=== PATIENT | male | born 1970 | race African-American/Black ===

== ENCOUNTER 2016-04-21 20:54 | Inpatient (IN) | payer MEDICAID ==
[~2016-04-21] VITALS: Ht 190.5 cm; Wt 121.5 kg
[2016-04-21] MEDS ORDERED: InsuLIN R (HUMAN) 100 UNITS in SODIUM CHL 0.9% 99 ML IV SCH (21:18)
[2016-04-21] MEDS ORDERED: POTASSIUM CHL 20MEQ/100ML 100 ML IV ONE (21:30)
[2016-04-21] MEDS ORDERED: DEXTROSE (50%) 50ML SYRG IV PRN (21:30)
[2016-04-21] MEDS ORDERED: SODIUM CHLORIDE 0.9% 2,000 ML IV ONE (21:30)
[2016-04-21 21:41] LABS: Basophils # (auto) 0.1 uL; Basophils % (auto) 0.7 % (0.0-2.0); DEFINITIVE VIEW TRANSMISSION; Eosinophils # (auto) 0 uL; Eosinophils % (auto) 0.3 % (0.0-7.0); Hematocrit 52.8 % (41.0-53.0); Lymphocytes # (auto) 1.1 uL; Lymphocytes % (auto) 11.6 % (10.0-50.0); Mean Corpuscular Hemoglobin 27.6 pg (28.0-32.0); Mean Corpuscular Hgb Conc. 30.4 g/dL (32.0-36.0); Mean Corpuscular Volume 90.9 fL (80.0-100.0); Mean Platelet Volume 10.8 fL (7.4-10.4); Monocytes # (auto) 0.6 uL; Monocytes % (auto) 6.4 % (0.0-12.0); Neutrophils # (auto) 7.8 uL; Platelet Count (auto) 394 10^3/uL (140-450); SUSPECT VIEW TRANSMISSION; White Blood Cell 9.7 10^3/uL (4.4-10.8)
[2016-04-21] MEDS: ACCU-CHEK COMFORT CURVE STRIP VI SCH ×2 (22:14→22:55)
[2016-04-21 22:28] LABS: INR 1.04 (0.9-1.15); Partial Thromboplastin Time 29.9 sec (22.64-33.71); Prothrombin Time 10.7 sec (9.37-12.3)
[2016-04-21 22:35] LABS: Urine RBC None Seen /hpf (0 - 3)
[2016-04-21 23:50] LABS: Albumin 3.6 g/dL (3.4-5.0); Calcium 9.2 mg/dL (8.5-10.1); Potassium 4.7 mmol/L (3.5-5.1)
[2016-04-21 23:53] LABS: BUN/Creatinine Ratio 17.1; Bilirubin, Total 0.7 mg/dL (0.2-1.0); Total Protein 9.7 g/dL (6.4-8.2)
[2016-04-22] MEDS: ACCU-CHEK COMFORT CURVE STRIP VI SCH ×12 (00:04→21:47)
[2016-04-22 00:31] LABS: Urine Bilirubin Negative (Negative); Urine Blood Negative /uL (Negative); Urine Color Colorless (Yellow); Urine Ketone TRACE (Negative); Urine Nitrite Negative (Negative); Urine Urobilinogen Normal (Negative); Urine pH 5.5 (5.0-8.0)
[2016-04-22 00:58] LABS: Urine Glucose 4+ mg/dL (Normal)
[2016-04-22] MEDS ORDERED: SODIUM CHLORIDE 0.9% 1,000 ML IV SCH (05:52)
[2016-04-22] MEDS ORDERED: DEXTROSE (50%) 50ML SYRG IV PRN (06:00)
[2016-04-22] MEDS: InsuLIN REG 1unit/0.01ml Soln (100units/ml) SC SCH ×5 (06:00→21:47)
[2016-04-22] MEDS ORDERED: ONDANSETRON HCL 4 MG/2 ML VIAL IV PRN (06:15)
[2016-04-22] MEDS ORDERED: HYDROmorphone HCL 2 MG/ML VL IV PRN (06:15)
[2016-04-22] MEDS ORDERED: cefTRIAXone 1GM/50ML D5W 50 ML IV ONE (06:15)
[2016-04-22] MEDS ORDERED: InsuLIN REG 1unit/0.01ml Soln (100units/ml) IV ONE (06:15)
[2016-04-22] MEDS: SOD CHL 0.9%/ KCL 20MEQ 1,000 ML IV SCH ×2 (06:27→13:12)
[2016-04-22] MEDS: FAMOTIDINE 20 MG TAB PO SCH ×2 (10:15→21:39)
[2016-04-22] MEDS ORDERED: INSULIN DETEMIR(LEVEMIR) 1unit/0.01ml Soln (100units/ml) SC SCH (12:45)
[2016-04-22 13:00] VITALS: BP 129/87
[2016-04-22 13:45] LABS: Calcium 8.2 mg/dL (8.5-10.1)
[2016-04-22 13:47] LABS: BUN/Creatinine Ratio 15.4
[2016-04-22] MEDS: glyBURIDE 2.5 MG TAB PO SCH (13:48)
[2016-04-22 17:00] VITALS: BP 138/90
[2016-04-22 20:30] VITALS: BP 132/94
[2016-04-22 22:00] VITALS: BP 132/94
[2016-04-23] MEDS: InsuLIN REG 1unit/0.01ml Soln (100units/ml) SC SCH ×2 (01:59→06:20)
[2016-04-23] MEDS: ACCU-CHEK COMFORT CURVE STRIP VI SCH ×2 (01:59→06:17)
[2016-04-23 05:00] VITALS: BP 149/90
[2016-04-23] MEDS: glyBURIDE 2.5 MG TAB PO SCH (06:17)
[2016-04-23] MEDS ORDERED: GLIP-116 PO (06:29)
[2016-04-23 09:12] VITALS: BP 149/90
[2016-04-23 09:48] LABS: Basophils # (auto) 0.1 uL; Eosinophils # (auto) 0.1 uL; Eosinophils % (auto) 1.6 % (0.0-7.0); Hematocrit 46.3 % (41.0-53.0); Hemoglobin 14.6 g/dL (13.5-17.5); Lymphocytes # (auto) 1.8 uL; Lymphocytes % (auto) 19.7 % (10.0-50.0); Mean Corpuscular Hemoglobin 28.4 pg (28.0-32.0); Mean Corpuscular Hgb Conc. 31.5 g/dL (32.0-36.0); Mean Corpuscular Volume 90.2 fL (80.0-100.0); Mean Platelet Volume 9.6 fL (7.4-10.4); Monocytes # (auto) 0.4 uL; Monocytes % (auto) 4.1 % (0.0-12.0); Neutrophils # (auto) 6.7 uL; Neutrophils % (auto) 73.6 % (37.0-80.0); Platelet Count (auto) 308 10^3/uL (140-450); Red Cell Distribution Width 13.7 % (11.6-16.0); White Blood Cell 9.1 10^3/uL (4.4-10.8)
[2016-04-23] MEDS ORDERED: cefTRIAXone 1GM/50ML D5W 50 ML IV SCH (10:00)
[2016-04-23 10:21] LABS: Albumin 3.1 g/dL (3.4-5.0); BUN/Creatinine Ratio 10.8; Calcium 8.5 mg/dL (8.5-10.1); Potassium 3.5 mmol/L (3.5-5.1)
== END 2016-04-23 10:15 | disposition home or self-care (01) | DRG 420 ==
LOC: ER 20:59 → TELE 21:00 → TELE-EAST 04-22 10:58
PROVIDERS: ADMIT Family Medicine; ATTEND Internal Medicine
DX: E13.10 Other specified diabetes mellitus with ketoacidosis without coma (principal); N17.9 Acute kidney failure, unspecified; F17.210 Nicotine dependence, cigarettes, uncomplicated; Z79.4 Long term (current) use of insulin; Z91.14 Patient's other noncompliance with medication regimen
CPT/HCPCS: 36415; 36600; 71010; 71250; 80048; 80053; 81001; 82010; 82805; 82962; 83036; 85025; 85610; 85730; 87070; 93005; 96365; 96366; 96367; 96375; J0696; J1815; J3480

== ENCOUNTER 2017-11-01 12:11 | Inpatient (IN) | payer MEDICAID ==
[~2017-11-01] VITALS: Ht 190.5 cm; Wt 90.0 kg
[~2017-11-01 12:11] MED LIST: GLIP-116 PO
[2017-11-01] MEDS ORDERED: InsuLIN R (HUMAN) 100 UNITS in SODIUM CHL 0.9% 99 ML IV SCH ×2 (12:23→14:27)
[2017-11-01] MEDS: SODIUM CHLORIDE 0.9% 1,000 ML IV SCH ×5 (12:23→20:27)
[2017-11-01] MEDS ORDERED: DEXTROSE (50%) 50ML SYRG IV PRN (12:30)
[2017-11-01] MEDS ORDERED: ACCU-CHEK COMFORT CURVE STRIP VI SCH (13:30)
[2017-11-01 13:48] LABS: Hematocrit 50.5 % (41.0-53.0); Hemoglobin 16.7 g/dL (13.5-17.5); Mean Corpuscular Hemoglobin 30.1 pg (28.0-32.0); Mean Corpuscular Hgb Conc. 33.1 g/dL (32.0-36.0); Mean Corpuscular Volume 90.8 fL (80.0-100.0); Platelet Count (auto) 484 10^3/uL (140-450); Red Blood Cells 5.56 10^6/uL (4.5-5.90); Red Cell Distribution Width 13.8 % (11.8-14.3); White Blood Cell 18.7 10^3/uL (4.4-10.8)
[2017-11-01 14:05] LABS: Basophils % (manual) 0 (0.0-2.0); Blast Cells 0; Eosinophils % (manual) 0 (0-7); Myelocytes % 0; Promyelocytes % 0; Reactive Lymphocytes 0
[2017-11-01 14:06] LABS: Magnesium 2.5 mg/dL (1.6-2.6); Potassium 5.3 mmol/L (3.5-5.1)
[2017-11-01 14:12] LABS: BUN/Creatinine Ratio 19.2; Calcium 10.2 mg/dL (8.5-10.1)
[2017-11-01] MEDS ORDERED: cefTRIAXone 1GM/10ml IVPUSH 10 ML IV ONE (14:30)
[2017-11-01] MEDS ORDERED: NITROGLYCERIN 0.4 MG SL TAB SL PRN (14:30)
[2017-11-01] MEDS ORDERED: PROMETHAZINE HCL 25 MG/ML 1ML IV PRN (14:30)
[2017-11-01] MEDS ORDERED: TEMAZEPAM 15 MG CAP PO PRN (14:30)
[2017-11-01] MEDS ORDERED: HYDROcodone-ACET 5/325MG TAB PO PRN (14:30)
[2017-11-01] MEDS ORDERED: LORazepam 0.5 MG TAB PO PRN (14:30)
[2017-11-01] MEDS ORDERED: ACETAMINOPHEN 500 MG TAB PO PRN (14:30)
[2017-11-01] MEDS ORDERED: MORPHINE SULF INJ 2 MG/ML SYRINGE 1ML IV PRN ×2 (14:30)
[2017-11-01 14:45] LABS: Band Neutrophils % (manual) 4; Lymphocytes % (manual) 7 (10.0-50.0); Metamyelocytes % 1; Monocytes % (manual) 3 (0-12)
[2017-11-01 14:50] LABS: Amylase 26 U/L (25-115); Lipase 130 U/L (73-393)
[2017-11-01] MEDS: ACCU-CHEK COMFORT CURVE STRIP VI SCH ×6 (15:04→22:50)
[2017-11-01 15:13] LABS: CRP High Sensitivity > 19.0 mg/dL (< 0.3)
[2017-11-01] MEDS ORDERED: SODIUM CHLORIDE 0.9% 1,000 ML IV SCH ×3 (16:23→18:27)
[2017-11-01] MEDS: glipiZIDE 5 MG TAB PO SCH (17:00)
[2017-11-01 19:40] LABS: BUN/Creatinine Ratio 17.5; Calcium 9.5 mg/dL (8.5-10.1); Potassium 4.1 mmol/L (3.5-5.1)
[2017-11-01] MEDS: FAMOTIDINE (10MG/ML) 2ML VL IV SCH (22:40)
[2017-11-02] VITALS (19 sets, daily range): BP systolic 109–177; BP diastolic 60–105
[2017-11-02] MEDS: ACCU-CHEK COMFORT CURVE STRIP VI SCH ×12 (00:17→22:24)
[2017-11-02 01:33] LABS: BUN/Creatinine Ratio 14.7; Calcium 9.6 mg/dL (8.5-10.1); Potassium 3.8 mmol/L (3.5-5.1)
[2017-11-02] MEDS: SODIUM CHLORIDE 0.9% 1,000 ML IV SCH ×3 (03:13→18:04)
[2017-11-02 03:58] LABS: BUN/Creatinine Ratio 13.8; Calcium 9.1 mg/dL (8.5-10.1); Potassium 4.1 mmol/L (3.5-5.1)
[2017-11-02 07:20] LABS: Basophils # (auto) 0.1 uL; Basophils % (auto) 0.4 % (0.0-2.0); Eosinophils # (auto) 0 uL; Eosinophils % (auto) 0.1 % (0.0-7.0); Hematocrit 38.1 % (41.0-53.0); Hemoglobin 12.6 g/dL (13.5-17.5); Lymphocytes # (auto) 0.8 uL; Lymphocytes % (auto) 4.8 % (10.0-50.0); Mean Corpuscular Hemoglobin 29.8 pg (28.0-32.0); Mean Corpuscular Hgb Conc. 33.1 g/dL (32.0-36.0); Monocytes # (auto) 1.4 uL; Monocytes % (auto) 8.6 % (0.0-12.0); Neutrophils % (auto) 86.1 % (37.0-80.0); Nucleated Red Blood Cells % 0.1 %; Platelet Count (auto) 332 10^3/uL (140-450); Red Blood Cells 4.23 10^6/uL (4.5-5.90); Red Cell Distribution Width 13.5 % (11.8-14.3); White Blood Cell 16.3 10^3/uL (4.4-10.8)
[2017-11-02] MEDS: glipiZIDE 5 MG TAB PO SCH ×2 (07:43→18:04)
[2017-11-02 07:47] LABS: Albumin 1.4 g/dL (3.4-5.0); BUN/Creatinine Ratio 18.2; Calcium 6.4 mg/dL (8.5-10.1)
[2017-11-02 07:50] LABS: Bilirubin, Total 0.5 mg/dL (0.2-1.0); Total Protein 5.8 g/dL (6.4-8.2)
[2017-11-02 07:56] LABS: Potassium 2.4 mmol/L (3.5-5.1)
[2017-11-02] MEDS: POTASSIUM CHL 20MEQ/100ML 100 ML IV SCH ×2 (08:17→10:28)
[2017-11-02] MEDS: cefTRIAXone 1GM/10ml IVPUSH 10 ML IV SCH (08:45)
[2017-11-02] MEDS: PANTOPRAZOLE 40 MG TAB PO SCH (10:00)
[2017-11-02 10:23] LABS: BUN/Creatinine Ratio 11.6; Calcium 8.7 mg/dL (8.5-10.1)
[2017-11-02] MEDS: FAMOTIDINE (10MG/ML) 2ML VL IV SCH (10:28)
[2017-11-02] MEDS ORDERED: InsuLIN R (HUMAN) 100 UNITS in SODIUM CHL 0.9% 99 ML IV SCH (11:15)
[2017-11-02] MEDS ORDERED: INSULIN LANTUS (GLARGINE) 1 /0.01ml (100units/ml) SC ONE (11:15)
[2017-11-02] MEDS ORDERED: LABETALOL HCL 5 MG/ML ML 20ML VIAL IV PRN ×2 (13:30)
[2017-11-02 14:25] LABS: Urine Bacteria NONE SEEN /hpf (None Seen); Urine Blood Negative /uL (Negative); Urine Mucus FEW (None Seen); Urine Specific Gravity 1.027 (1.001-1.035); Urine WBC 1 /hpf (0 - 3)
[2017-11-02 14:37] LABS: Alcohol, Urine < 3.0 mg/dL (0-5); Amphetamine Screen, Urine NEGATIVE (NEGATIVE); Barbiturate Scree,Urine NEGATIVE (NEGATIVE); Benzodiazephine Screen, Urine NEGATIVE (NEGATIVE); Cannabinoid Screen, Urine NEGATIVE (NEGATIVE); Cocaine Screen, Urine NEGATIVE (NEGATIVE); Opiate Scree,Urine NEGATIVE (NEGATIVE); Phencyclidine Screen, Urine NEGATIVE (NEGATIVE)
[2017-11-02] MEDS ORDERED: glipiZIDE 5 MG TAB PO SCH (18:00)
[2017-11-02] MEDS: InsuLIN REG 1unit/0.01ml Soln (100units/ml) SC SCH ×2 (18:05→22:25)
[2017-11-02] MEDS ORDERED: POTASSIUM PHOSPHATE 44 MEQ in D5W 5% 250 ML IV ONE (18:45)
[2017-11-02] MEDS: INSULIN LANTUS (GLARGINE) 1 /0.01ml (100units/ml) SC SCH (22:25)
[2017-11-03] MEDS: SODIUM CHLORIDE 0.9% 1,000 ML IV SCH ×3 (04:30→18:46)
[2017-11-03 05:00] VITALS: BP 132/86
[2017-11-03 05:51] LABS: Hematocrit 41.1 % (41.0-53.0); Hemoglobin 14.4 g/dL (13.5-17.5); Mean Corpuscular Hemoglobin 30.4 pg (28.0-32.0); Platelet Count (auto) 430 10^3/uL (140-450); Red Blood Cells 4.73 10^6/uL (4.5-5.90); Red Cell Distribution Width 13.3 % (11.8-14.3)
[2017-11-03 06:12] LABS: Phosphorus 2.3 mg/dL (2.5-4.90)
[2017-11-03 06:13] LABS: BUN/Creatinine Ratio 14.9; Calcium 8.6 mg/dL (8.5-10.1); Potassium 3.2 mmol/L (3.5-5.1)
[2017-11-03 06:14] LABS: Basophils % (manual) 0 (0.0-2.0); Blast Cells 0; Eosinophils % (manual) 0 (0-7); Promyelocytes % 0; Reactive Lymphocytes 0
[2017-11-03] MEDS: glipiZIDE 5 MG TAB PO SCH ×2 (06:55→17:32)
[2017-11-03] MEDS: ACCU-CHEK COMFORT CURVE STRIP VI SCH ×4 (06:55→22:00)
[2017-11-03] MEDS: INSULIN LANTUS (GLARGINE) 1 /0.01ml (100units/ml) SC SCH ×2 (06:55→22:00)
[2017-11-03] MEDS: InsuLIN REG 1unit/0.01ml Soln (100units/ml) SC SCH ×4 (06:56→22:00)
[2017-11-03 07:44] LABS: Band Neutrophils % (manual) 9; Lymphocytes % (manual) 2 (10.0-50.0); Metamyelocytes % 1; Monocytes % (manual) 2 (0-12); Myelocytes % 2
[2017-11-03 09:00] VITALS: BP 139/80
[2017-11-03] MEDS: cefTRIAXone 1GM/10ml IVPUSH 10 ML IV SCH (10:22)
[2017-11-03] MEDS: PANTOPRAZOLE 40 MG TAB PO SCH (10:22)
[2017-11-03 13:00] VITALS: BP 130/79
[2017-11-03 17:28] VITALS: BP 135/85
[2017-11-03] MEDS ORDERED: POTASSIUM CHL 10 Meq TABLET PO ONE (19:30)
[2017-11-03 22:00] VITALS: BP 131/83
[2017-11-04 05:00] VITALS: BP 138/84
[2017-11-04] MEDS: glipiZIDE 5 MG TAB PO SCH (06:16)
[2017-11-04] MEDS: InsuLIN REG 1unit/0.01ml Soln (100units/ml) SC SCH (06:18)
[2017-11-04] MEDS: INSULIN LANTUS (GLARGINE) 1 /0.01ml (100units/ml) SC SCH (06:19)
[2017-11-04] MEDS: ACCU-CHEK COMFORT CURVE STRIP VI SCH (06:21)
[2017-11-04 09:00] VITALS: BP 126/78
[2017-11-04 10:03] LABS: Basophils # (auto) 0.1 uL; Eosinophils # (auto) 0 uL; Red Cell Distribution Width 13.4 % (11.8-14.3)
[2017-11-04 10:04] LABS: Basophils % (auto) 0.9 % (0.0-2.0); Eosinophils % (auto) 0.3 % (0.0-7.0); Hematocrit 42.5 % (41.0-53.0); Hemoglobin 14.9 g/dL (13.5-17.5); Lymphocytes # (auto) 1.2 uL; Mean Corpuscular Hemoglobin 30.5 pg (28.0-32.0); Monocytes # (auto) 0.7 uL; Monocytes % (auto) 7.1 % (0.0-12.0); Neutrophils # (auto) 7.4 uL; Neutrophils % (auto) 78.7 % (37.0-80.0); Nucleated Red Blood Cells % 0.1 %; Platelet Count (auto) 444 10^3/uL (140-450); Red Blood Cells 4.88 10^6/uL (4.5-5.90); White Blood Cell 9.5 10^3/uL (4.4-10.8)
[2017-11-04] MEDS: PANTOPRAZOLE 40 MG TAB PO SCH (10:38)
== END 2017-11-04 12:06 | disposition home or self-care (01) | DRG 420 ==
LOC: EDBD 12:11 → EDSEX 12:11 → ER 12:11 → OVERFLOW 12:12 → ICU WEST 11-02 05:31 → TELE-CENTR 11-02 14:53
PROVIDERS: ADMIT Internal Medicine; ATTEND Internal Medicine
DX: E11.10 Type 2 diabetes mellitus with ketoacidosis without coma (principal); E87.0 Hyperosmolality and hypernatremia; R65.10 Systemic inflammatory response syndrome (SIRS) of non-infectious origin without acute organ dysfunction; E87.5 Hyperkalemia; E86.0 Dehydration; F17.210 Nicotine dependence, cigarettes, uncomplicated; I10 Essential (primary) hypertension; J20.9 Acute bronchitis, unspecified; K59.00 Constipation, unspecified; D72.829 Elevated white blood cell count, unspecified; Z91.19 Patient's noncompliance with other medical treatment and regimen; Z83.3 Family history of diabetes mellitus
CPT/HCPCS: 36415; 36600; 71045; 80048; 80053; 80307; 81001; 82010; 82150; 82805; 82962; 83036; 83690; 83735; 83930; 84100; 84132; 85007; 85025; 85027; 85652; 86141; 87040; 87081; 87086; 93005; 94761; 96361; 96365; 96375; 99291; G0378; J0696; J1815; J3480; J3490; J7060